=== PATIENT | female | born 1990 | race African-American/Black ===

== ENCOUNTER 2018-05-25 05:27 | Inpatient (IN) | payer MEDICAID ==
[~2018-05-25] VITALS: Ht 152.4 cm; Wt 65.8 kg
[2018-05-25] MEDS ORDERED: DEXT 5%/LR + PITOCIN 20UNITS/L 1,000 ML IV SCH (06:24)
[2018-05-25] MEDS ORDERED: LACTATED RINGERS 1,000 ML IV SCH ×2 (06:24→07:00)
[2018-05-25] MEDS ORDERED: METHYLERGONOVINE MALEATE 0.2 MG/ML IM PRN (06:30)
[2018-05-25] MEDS ORDERED: MISOPROSTOL 200MCG TABLET RC SCH (06:30)
[2018-05-25] MEDS ORDERED: CARBOPROST TROMETHAMINE 250 MCG/ML AMPUL IM PRN (06:30)
[2018-05-25] MEDS ORDERED: CEFAZOLIN 2,000 MG in DEXT 5% WATER 100 ML IV SCH (06:30)
[2018-05-25] MEDS ORDERED: CITRIC ACID/SODIUM CITRATE SOLN 30ML UDC PO SCH (06:30)
[2018-05-25 07:04] LABS: CLARITY URINE CLEAR (CLEAR); COLOR URINE YELLOW (YELLOW); KETONES URINE NEGATIVE (NEGATIVE); LEUKOCYTE ESTERASE URINE NEGATIVE (NEGATIVE); NITRITE URINE NEGATIVE (NEGATIVE); OCCULT BLOOD URINE NEGATIVE (NEGATIVE); PROTEIN URINE NEGATIVE (NEGATIVE); SPECIFIC GRAVITY URINE 1.012 (1.005-1.030); UROBILINOGEN URINE 0.2 E.U./dL (0.2-1.0)
[2018-05-25 07:12] LABS: INR 0.9; PARTIAL THROMBOPLASTIN TIME 26.1 sec (23.4-31.0); PROTHROMBIN TIME 9.4 sec (9.1-11.1)
[2018-05-25 07:15] LABS: BASOPHILS % 0.3 % (0.0-2.0); EOSINOPHILS % 0.8 % (0.0-5.0); HEMATOCRIT. 34.1 % (36.0-48.0); HEMOGLOBIN. 11.4 g/dL (12.0-16.0); MEAN CORPUSCULAR HEMOGLOBIN 28.8 pg (28.0-32.0); MEAN CORPUSCULAR VOLUME 86.3 fL (81.0-99.0); MEAN PLATELET VOLUME 8.7 fl (7.4-10.4); MONOCYTES % 6.5 % (2.0-8.0); NEUTROPHILS % 64.4 % (40.0-76.0); PLATELET 214 x1000/uL (130-400); RED BLOOD CELL COUNT 3.96 mill/uL (4.2-5.4); RED CELL DISTRIBUTION WIDTH 16.9 % (11.6-14.6)
[2018-05-25] MEDS ORDERED: MORPHINE SULFATE/PF 1MG/ML 10ML AMP ONE (07:50)
[2018-05-25] MEDS ORDERED: OXYTOCIN 10 UNITS/ML 1ML ONE (07:53)
[2018-05-25] MEDS ORDERED: SODIUM CHLORIDE 0.9% 10ML VIAL ONE ×2 (07:58→08:00)
[2018-05-25] MEDS ORDERED: CEFAZOLIN SODIUM 1000MG/VIAL ONE ×2 (07:58→08:13)
[2018-05-25] MEDS ORDERED: EPHEDRINE SULFATE 50MG/ML VIAL ONE (08:00)
[2018-05-25 08:01] LABS: *AMPHETAMINES SCREEN URINE NEGATIVE (NEGATIVE); *BARBITURATES SCREEN URINE NEGATIVE (NEGATIVE); *BENZODIAZEPINES SCREEN URINE NEGATIVE (NEGATIVE); *COCAINE SCREEN URINE NEGATIVE (NEGATIVE); CANNABINOID URINE SCREEN NEGATIVE (NEGATIVE); OPIATES URINE SCREEN NEGATIVE (NEGATIVE); PHENCYCLIDINE URINE SCREEN NEGATIVE (NEGATIVE)
[2018-05-25 08:02] LABS: METHADONE URINE SCREEN NEGATIVE (NEGATIVE)
[2018-05-25] MEDS ORDERED: GLYCOPYRROLATE 0.2 MG/ML 2ML VIAL ONE (08:02)
[2018-05-25] MEDS ORDERED: BUPIVACAINE HCL/DEXTROSE/PF 0.75% 2ML AMP INJ ONE (10:37)
[2018-05-25] MEDS ORDERED: ONDANSETRON HCL 4MG/2ML INJ ONE (11:04)
[2018-05-25] MEDS ORDERED: METOCLOPRAMIDE HCL 10MG/2ML VIAL ONE (11:04)
[2018-05-25] MEDS ORDERED: MIDAZOLAM HCL 2 MG/2 ML VIAL ONE (11:13)
[2018-05-25 11:28] LABS: HEPATITIS B SURFACE ANTIGEN NEGATIVE
[2018-05-25] MEDS ORDERED: HYDROMORPHONE HCL/PF 2MG/ML CPJ IM PRN (11:45)
[2018-05-25] MEDS ORDERED: IBUPROFEN 400MG TABLET PO PRN (11:45)
[2018-05-25] MEDS ORDERED: RHO(D) IMMUNE GLOBULIN 300 MCG/SYR IM PRN (11:45)
[2018-05-25] MEDS ORDERED: BISACODYL 10MG SUPP PR PRN (11:45)
[2018-05-25] MEDS ORDERED: DIPHENHYDRAMINE 50MG/ML VIAL IM PRN (12:45)
[2018-05-25] MEDS ORDERED: BUTORPHANOL TARTRATE 2 MG/ML VIAL IM PRN (12:45)
[2018-05-25] MEDS: DIPHENHYDRAMINE 50MG/ML VIAL IV PRN ×2 (12:56→20:12)
[2018-05-25 14:45] VITALS: BP 120/68
[2018-05-25 15:30] VITALS: BP 116/74
[2018-05-25] MEDS: DEXT 5%/LR + PITOCIN 20UNITS/L 1,000 ML IV SCH ×2 (16:30→23:40)
[2018-05-25] MEDS: KETOROLAC 30MG/ML VIAL IV PRN (16:42)
[2018-05-25 16:47] VITALS: BP 113/62
[2018-05-25] MEDS ORDERED: DIPHENHYDRAMINE 50MG/ML VIAL IV PRN (18:45)
[2018-05-25 20:00] VITALS: BP 123/72
[2018-05-26] VITALS: BP 100/57
[2018-05-26] MEDS: KETOROLAC 30MG/ML VIAL IV PRN (00:10)
[2018-05-26] MEDS: DIPHENHYDRAMINE 50MG/ML VIAL IV PRN (03:50)
[2018-05-26 04:00] VITALS: BP 98/52
[2018-05-26 06:27] LABS: BASOPHILS % 0.1 % (0.0-2.0); EOSINOPHILS % 0.6 % (0.0-5.0); HEMATOCRIT. 30.9 % (36.0-48.0); HEMOGLOBIN. 10.4 g/dL (12.0-16.0); LYMPHOCYTES % 15.3 % (20.0-50.0); MEAN CORPUSCULAR HEMOGLOBIN 29.3 pg (28.0-32.0); MEAN CORPUSCULAR VOLUME 86.9 fL (81.0-99.0); MEAN PLATELET VOLUME 8.6 fl (7.4-10.4); MONOCYTES % 9.2 % (2.0-8.0); NEUTROPHILS % 74.8 % (40.0-76.0); PLATELET 173 x1000/uL (130-400); RED BLOOD CELL COUNT 3.55 mill/uL (4.2-5.4); RED CELL DISTRIBUTION WIDTH 17.1 % (11.6-14.6)
[2018-05-26] MEDS ORDERED: CEFAZOLIN 2,000 MG in DEXT 5% WATER 100 ML IV SCH (06:43)
[2018-05-26] MEDS: IBUPROFEN 800MG TABLET PO PRN ×3 (08:23→20:20)
[2018-05-26 08:30] VITALS: BP 93/54
[2018-05-26] MEDS: ACETAMINOPHEN WITH CODEINE 300/30MG TABLET PO PRN ×2 (11:52→22:15)
[2018-05-26 15:45] VITALS: BP 92/44
[2018-05-26 19:30] VITALS: BP 94/55
[2018-05-27] MEDS: IBUPROFEN 800MG TABLET PO PRN ×3 (01:53→23:03)
[2018-05-27 04:00] VITALS: BP 100/55
[2018-05-27 08:00] VITALS: BP 104/52
[2018-05-27] MEDS: ACETAMINOPHEN WITH CODEINE 300/30MG TABLET PO PRN ×2 (08:41→15:44)
[2018-05-27 16:00] VITALS: BP 98/56
[2018-05-27 20:10] VITALS: BP 98/54
[2018-05-28] MEDS: ACETAMINOPHEN WITH CODEINE 300/30MG TABLET PO PRN (01:47)
[2018-05-28 04:30] VITALS: BP 104/62
[2018-05-28 09:00] VITALS: BP 100/64
[2018-05-28] MEDS: IBUPROFEN 800MG TABLET PO PRN (11:19)
== END 2018-05-28 11:20 | disposition home or self-care (01) | DRG 540 ==
LOC: 8 EST LDRP 05:27 → 8EST 16:22
PROVIDERS: ADMIT Obstetrics & Gynecology; ATTEND Obstetrics & Gynecology
PROC: 10D00Z1 Extraction of Products of Conception, Low, Open Approach (ICD-10-PCS; principal; 2018-05-25)
PROC: 0UB70ZZ Excision of Bilateral Fallopian Tubes, Open Approach (ICD-10-PCS; 2018-05-25)
DX: O34.211 Maternal care for low transverse scar from previous cesarean delivery (principal); O69.81X0 Labor and delivery complicated by cord around neck, without compression, not applicable or unspecified; Z30.2 Encounter for sterilization; Z37.0 Single live birth; Z3A.39 39 weeks gestation of pregnancy
CPT/HCPCS: 36415; 80305; 86592; 86703; 86762; 86850; 86900; 86920; 87340; 88302; 88307; G0378; J0595; J0690; J1170; J1200; J1885; J2250; J2274; J2405; J2590; J2765; J3490; J7060; J7120; A4315